=== PATIENT | female | born 1970 | race Caucasian/White ===

== ENCOUNTER 2020-01-21 14:01 | Outpatient (REF) | payer BC, SELFPAY ==
--- NOTE | 2020-01-21 14:09 | XR_ITS ---
EXAMINATION: 1. RADIOGRAPHS RIGHT KNEE 2. RADIOGRAPH LEFT KNEE CLINICAL INFORMATION: Bilateral knee pain. COMPARISON: None TECHNIQUE: 4 views of each knee were obtained. FINDINGS: Right knee: No fracture or dislocation. No suprapatellar joint effusion. Medial and lateral joint spaces are well-maintained. Small patellar enthesophyte. No focal soft tissue swelling of the anterior knee. Left knee: No fracture or. Tiny suprapatellar joint effusion. There is mild narrowing of the medial joint space height with marginal osteophytes which are also most prominent within the medial compartment. No focal soft tissue swelling of the anterior knee. XR/XR knee LT 4V IMPRESSION: 1. Mild degenerative changes of the left knee with only a tiny suprapatellar joint effusion. 2. Only minimal degenerative changes of the right kidney appreciated.
--- NOTE | 2020-01-21 14:09 | XR_ITS ---
EXAMINATION: 1. RADIOGRAPHS RIGHT KNEE 2. RADIOGRAPH LEFT KNEE CLINICAL INFORMATION: Bilateral knee pain. COMPARISON: None TECHNIQUE: 4 views of each knee were obtained. FINDINGS: Right knee: No fracture or dislocation. No suprapatellar joint effusion. Medial and lateral joint spaces are well-maintained. Small patellar enthesophyte. No focal soft tissue swelling of the anterior knee. Left knee: No fracture or. Tiny suprapatellar joint effusion. There is mild narrowing of the medial joint space height with marginal osteophytes which are also most prominent within the medial compartment. No focal soft tissue swelling of the anterior knee. XR/XR knee RT 4V IMPRESSION: 1. Mild degenerative changes of the left knee with only a tiny suprapatellar joint effusion. 2. Only minimal degenerative changes of the right kidney appreciated.
[2020-01-21 17:07] LABS: Rheumatoid Factor < 15.0 IU/mL (<15.0)
[2020-01-21 17:30] LABS: Erythrocyte Sedimentation Rate 10 MM/HR (0-20)
[2020-01-24 03:26] LABS: Lyme Abs Screen <0.90 index
[2020-01-24 18:31] LABS: Anti Nuclear Antibody Screen NEGATIVE (NEGATIVE)
== END 2020-01-21 14:02 | disposition home or self-care (01) ==
LOC: HO.HMGCX 14:01
PROVIDERS: PCP Nurse Practitioner Family; Visit Provider Nurse Practitioner Family
DX: M25.562 Pain in left knee (principal); M25.561 Pain in right knee
CPT/HCPCS: 36415; 73564; 85652; 86038; 86039; 86140; 86431; 86618

== ENCOUNTER 2020-02-13 11:36 | Outpatient (REF) | payer BC, SELFPAY ==
--- NOTE | 2020-02-13 11:45 | XR_ITS ---
EXAMINATION: XR KNEE AP STANDING CLINICAL INFORMATION: Knee pain. COMPARISON: Bilateral knee radiographs dated 01/21/2020. TECHNIQUE: AP bilateral standing view of the knees was obtained. FINDINGS: Mild right and moderate left medial femoral-tibial joint space narrowing is seen. There is no acute fracture. The soft tissues are unremarkable. XR/XR knee standing BI IMPRESSION: Mild right and moderate left medial femoral-tibial joint space narrowing is likely degenerative in nature suggesting osteoarthritis without significant interval change. No acute abnormality.
== END 2020-02-13 11:37 | disposition home or self-care (01) ==
LOC: HO.HOSX 11:36
PROVIDERS: Visit Provider Orthopaedic Surgery
DX: M25.561 Pain in right knee (principal); M25.562 Pain in left knee; M17.10 Unilateral primary osteoarthritis, unspecified knee; M17.0 Bilateral primary osteoarthritis of knee
CPT/HCPCS: 20610; 73565; J1100

== ENCOUNTER 2020-02-23 12:35 | Outpatient (REF) | payer BC, SELFPAY | END 2020-02-23 12:36 | disposition home or self-care (01) | LOC: HO.LAB 12:35 | PROVIDERS: Visit Provider Internal Medicine | DX: Z20.828 Contact with and (suspected) exposure to other viral communicable diseases (principal) | CPT/HCPCS: C9803; U0003 ==

== ENCOUNTER → 2020-02-26 08:45 | Outpatient (BNVA) | payer BC, SELFPAY | PROVIDERS: Visit Provider Physician Assistant | DX: Z76.89 Persons encountering health services in other specified circumstances (principal) ==

== ENCOUNTER → 2020-05-27 09:12 | Outpatient (BNVA) | payer BC, SELFPAY | PROVIDERS: PCP Nurse Practitioner Family; Visit Provider Orthopaedic Surgery | DX: M00.9 Pyogenic arthritis, unspecified (principal) | CPT/HCPCS: 20610; J1100 ==

== ENCOUNTER 2020-07-17 07:05 | Outpatient (REF) | payer BC, SELFPAY ==
--- NOTE | ~2020-07-17 | XR_ITS ---
EXAMINATION: XR FOOT, RIGHT CLINICAL INFORMATION: Bunion COMPARISON: None TECHNIQUE: AP, lateral, and oblique views of the right foot. FINDINGS: Mild hallux valgus. Small calcification/ossification medial to the 1st metatarsal head. No acute fractures seen. Tarsometatarsal alignment is maintained. Normal bone mineralization. XR/XR foot RT min 3V IMPRESSION: Hallux valgus. No acute osseous abnormality.
[2020-07-17 07:50] LABS: MANUAL DIFF FLAG NO
[2020-07-17 07:52] LABS: Basophils Percent Auto 0.7 % (0-2); Eosinophils Absolute Auto 0.2 X10*3/uL (0.0-0.4); Eosinophils Percent Auto 2.6 % (0-4); Hematocrit 40.3 % (37-47); Hemoglobin 13.4 g/dl (12.0-16.0); Imm Gran Abs Auto 0.03 X10*3/uL (0.00-0.03); Imm Gran Pct Auto 0.5 % (0.0-0.4); Lymphocytes Absolute Auto 2.4 X10*3/uL (1.2-4.9); Lymphocytes Percent Auto 39.6 % (20-40); Mean Corpuscular HGB Conc 33.3 g/dl (31.0-35.0); Mean Corpuscular Hemoglobin 30.5 pg (27.0-33.0); Mean Corpuscular Volume 91.6 fL (80-98); Mean Platelet Volume 10.4 fL (9.4-12.3); Monocytes Absolute Auto 0.6 X10*3/uL (0.1-1.2); Monocytes Percent Auto 9.4 % (2-11); Neutrophils Absolute Auto 2.9 X10*3/uL (2.0-8.3); Neutrophils Percent Auto 47.2 % (45-73); Platelet Count 294 X10*3/uL (160-400); Red Cell Distribution Width 13.3 % (11.0-16.0); White Blood Count 6.1 X10*3/uL (4.8-10.8)
[2020-07-17 08:18] LABS: Alanine Aminotransferase 20 U/L (0-31); Albumin Level 4.2 g/dL (3.5-5.0); Alkaline Phosphatase 115 U/L (39-117); Anion Gap 12 (12-20); Aspartate Amino Transferase 17 U/L (5-31); Bilirubin Total 0.6 mg/dL (0.0-1.0); Blood Urea Nitrogen 18 mg/dL (9-16); Calcium 9.7 mg/dL (8.4-10.2); Carbon Dioxide 31 mmol/L (22-29); Chloride 103 mmol/L (96-108); Cholesterol 219 mg/dL; Estimated Glomerular Filt Rate > 60; Glucose Fasting 95 mg/dL (60-99); HDL Cholesterol 78 mg/dL; LDL Cholesterol Calculated 128 mg/dl; Potassium 4.6 mmol/L (3.3-5.1); Sodium 141 mmol/L (135-145); Total Protein 6.7 g/dL (6.5-8.0); Triglycerides 66 mg/dL
[2020-07-17 08:41] LABS: TSH reflex Free T4 1.11 uIU/mL (0.32-4.0)
== END 2020-07-17 07:06 | disposition home or self-care (01) ==
LOC: HO.LAB 07:05
PROVIDERS: Visit Provider Nurse Practitioner Family
DX: Z00.00 Encounter for general adult medical examination without abnormal findings (principal); M21.612 Bunion of left foot
CPT/HCPCS: 36415; 73630; 80053; 80061; 84443; 85025

== ENCOUNTER → 2020-08-31 13:31 | Outpatient (REF) | payer BC, SELFPAY ==
--- NOTE | 2020-08-31 13:34 | CA_ITS ---
Transthoracic Echocardiogram Patient (Last, First, Middle): Debi Campbell, Gender: Female Date of : 1970 Age: 49 Procedure Date: 08/31/2020 Procedure Type: Transthoracic Echocardiogram Location: OP Height: 160.02 cm Weight: 81.65 kg BSA: 1.85 m2 Heart Rate: bpm BP: 122 / 70 mmHg Specialist Physician: [place] Referring MD: Dane Forte [facility] [employer] Sales Associate: Eric Boyle MD Symptoms: R01.1 - Cardiac murmur, unspecified Study Quality: Good ECG Rhythm: Sinus Conclusions: - Normal study Findings Left Ventricle Normal left ventricular size, thickness, and systolic function. The visually estimated ejection fraction is between 60-65%. There is no evidence of regional wall motion abnormalities. Diastolic function is normal for age. Right Ventricle Normal right ventricular cavity size and systolic function. Atria The left atrium is likely dilated. There is no evidence of interatrial shunt. The right atrium is normal in size. Aortic Valve Normal aortic valve structure and function. There is no aortic valve stenosis. There is no aortic valve regurgitation. Mitral Valve Normal mitral valve structure and function. There is trace mitral valve regurgitation. There is no mitral valve stenosis. Pulmonic Valve The pulmonic valve is likely normal. Tricuspid Valve Normal tricuspid valve structure. There is trace tricuspid valve regurgitation. The right ventricular systolic pressure is normal. The right ventricular systolic pressure is 21 mmHg. Normal right atrial pressure. There is no evidence of pulmonary hypertension. Great Vessels All visible segments of the aorta are normal in size. The pulmonary artery was not well visualized. Venous The inferior vena cava is normal in size. Pericardium/Pleural There is no evidence of pericardial effusion. Prior Study Comparison No prior study available for comparison. Measurements 2D Linear Measurements IVSd: 1.03 0.6-0.9/0.6-1.0 cm LVIDd: 4.31 3.9-5.3/4.2-5.9 cm LVIDd Index: 2.33 2.4-3.2/2.2-3.1 cm/m2 LVIDs: 2.35 2.0-3.6 cm LVPWd: 1.06 0.7-1.1 cm Ao Root: 2.70 2.1-3.5 cm LA Diam: 3.30 2.7-3.8/3.0-4.0 cm LAIDs Index: 1.78 1.5-2.3 cm/m2 LV Mass: 189.36 67-162/88-224 g LV Mass Index: 102.36 43-95/49-115 g/m2 LVOT Diam: 1.90 3.0+(-)1.3 cm Mitral Valve MV Pk E: 0.90 MV PK A: 0.77 MV Decel Time: 161.00 E/A: 1.20 E'Lateral: 10.20 E'Medial: 9.25 E/E' Med: 9.70 E/E' Lat: 8.80 PHT: 47.00 MVA PHT: 4.68 Decel Rapides: 5.60 Aortic Valve AoV Pk Song: 1.46 AoV Mn Song: 1.02 AoV VTI: 0.34 AoV Pk Grad: 9.00 Aov Mn Grad: 5.00 YOSELIN Cont.VTI: 1.95 LVOT LVOT Pk Song: 0.94 LVOT Mn Song: 0.57 LVOT VTI: 0.23 LVOT Pk Grad: 4.00 LVOT Mn Grad: 2.00 LVOT Diam: 1.90 LVOT Area: 2.84 Diastolic Function MV Pk E: 0.90 MV Pk A: 0.77 E/A: 1.20 E'Medial: 9.25 E/E' Med: 9.70 E' Laterial: 10.20 E/E' Lat: 8.80 Tricuspid Valve TR Pk Song: 2.15 TR Pk Grad: 18.00 RA Press: 3.00 RVSP: 21.00 Great Vessels Aorta Ao Root-2D: 2.70 2.0-3.7 cm Ao Asc: 2.80 2.1-3.4 cm Pulmonary Valve PV Pk Song: 0.87 Peak PV Grad: 3.00 Updated in Other Vendor System with Status of Final Eric Boyle MD electronically signed on 08/31/2020 5:08:33 PM with status of Final
== END ==
LOC: HO.CARD 13:31
PROVIDERS: PCP Nurse Practitioner Family; Visit Provider Nurse Practitioner Family
DX: R01.1 Cardiac murmur, unspecified (principal)
CPT/HCPCS: 93306

== ENCOUNTER 2020-10-05 06:41 | Outpatient (REF) | payer BC, SELFPAY ==
--- NOTE | ~2020-10-05 | XR_ITS ---
EXAMINATION: XR CERVICAL SPINE CLINICAL INFORMATION: Spinal stenosis COMPARISON: Previous x-ray January 2020 TECHNIQUE: 5 views of the cervical spine were obtained. FINDINGS: Bone alignment is normal. No fracture or dislocation is seen. There is degenerative spondylosis and degenerative disc disease from C3-C4 to C6-C7. There is right-sided neural foraminal narrowing from bony osteophyte at C3-C4, C4-C5 and C5-C6. There is left-sided neural foraminal narrowing from bony osteophyte from C3-C4 to C6-C7. Prevertebral soft tissues are normal. XR/XR cervical spine 3V IMPRESSION: Multilevel degenerative changes increased from 2006.
== END 2020-10-05 06:42 | disposition home or self-care (01) ==
LOC: HO.XRAY 06:41
PROVIDERS: PCP Nurse Practitioner Family; Visit Provider Nurse Practitioner Family
DX: M48.02 Spinal stenosis, cervical region (principal)
CPT/HCPCS: 72040

== ENCOUNTER → 2020-10-08 08:40 | Outpatient (BNVA) | payer BC, SELFPAY | PROVIDERS: PCP Nurse Practitioner Family; Visit Provider Orthopaedic Surgery ==

== ENCOUNTER → 2020-10-14 07:59 | Outpatient (BNVA) | payer BC, SELFPAY | PROVIDERS: PCP Nurse Practitioner Family; Visit Provider Orthopaedic Surgery | DX: M17.0 Bilateral primary osteoarthritis of knee (principal) | CPT/HCPCS: 20610 ==

== ENCOUNTER 2020-10-15 13:45 | Outpatient (REF) | payer BC, SELFPAY ==
--- NOTE | ~2020-10-15 | MR_ITS ---
EXAMINATION: MR CERVICAL SPINE WITHOUT CONTRAST CLINICAL INFORMATION: Spinal stenosis. Right arm pain, numbness, finger numbness. COMPARISON: Most recent cervical spine radiographs dated 10/05/2020. TECHNIQUE: MRI of the cervical spine was obtained using routine sequences without contrast. FINDINGS: VERTEBRAL BODIES AND PARASPINAL SOFT TISSUES: Mild reversal of the normal cervical lordosis, which may be positional or related to muscular spasm. No acute fracture or subluxation. No loss of vertebral body height. Loss of intervertebral disc height with disc desiccation at C3 through C7. Prominent degenerative endplate changes at C3 through C5. No abnormal signal within the visualized cord. The paraspinal soft tissues are unremarkable. CERVICOMEDULLARY JUNCTION AND VISUALIZED POSTERIOR FOSSA: Unremarkable. SPINAL LEVELS: C2-C3: No significant disc bulge. No central canal or neural foraminal stenosis. C3-C4: Mild broad-based disc bulge which partially effaces the ventral thecal sac. Bilateral facet arthropathy and uncinate spurring with minimal bilateral neural foraminal stenosis. C4-C5: Broad-based disc osteophyte complex which completely effaces the ventral thecal sac and minimally indents the adjacent cord. Bilateral facet arthropathy and uncinate spurring causing moderate right and mild left neural foraminal stenosis. C5-C6: Broad-based disc osteophyte complex, slightly asymmetric to the left which completely effaces the ventral thecal sac and minimally indents the adjacent cord. Bilateral uncinate spurring with mild left neural foraminal stenosis. C6-C7: Broad-based disc osteophyte complex, asymmetric to the right which completely effaces the ventral thecal sac and minimally indents the adjacent cord. Bilateral facet arthropathy and uncinate spurring causing [id number] bilateral neural foraminal stenosis. C7-T1: No significant disc bulge. No central canal or neural foraminal stenosis. MR/MR cervical spine wo con IMPRESSION: 1. Mild broad-based disc bulge at C3-C4 which partially effaces the ventral thecal sac with bilateral uncinate spurring and minimal bilateral neural foraminal stenosis. 2. Broad-based disc osteophyte complex at C4-C5 which completely effaces the ventral thecal sac and minimally indents the adjacent cord. Bilateral facet arthropathy and uncinate spurring with moderate right and mild left neural foraminal stenosis. 3. Broad-based disc osteophyte complex at C5-C6, asymmetric to the left which completely effaces the ventral thecal sac and minimally indents the adjacent cord. Bilateral uncinate spurring causing mild left neural foraminal stenosis. 4. Broad-based disc osteophyte complex at C6-C7 which is asymmetric to the right and completely effaces the ventral thecal sac as well as minimally indents the adjacent cord. Bilateral facet arthropathy and uncinate spurring causing [id number] bilateral neural foraminal stenosis. 5. Mild reversal of the normal cervical lordosis, which may be positional or related to muscular spasm.
== END 2020-10-15 13:46 | disposition home or self-care (01) ==
LOC: HO.MRI 13:45
PROVIDERS: PCP Nurse Practitioner Family; Visit Provider Nurse Practitioner Family
DX: M48.02 Spinal stenosis, cervical region (principal)
CPT/HCPCS: 72141

== ENCOUNTER → 2020-10-21 08:50 | Outpatient (BNVA) | payer BC, SELFPAY | PROVIDERS: Visit Provider Orthopaedic Surgery | DX: M17.0 Bilateral primary osteoarthritis of knee (principal) | CPT/HCPCS: 20610 ==

== ENCOUNTER → 2020-10-28 08:24 | Outpatient (BNVA) | payer BC, SELFPAY | PROVIDERS: Visit Provider Orthopaedic Surgery | DX: M17.0 Bilateral primary osteoarthritis of knee (principal) | CPT/HCPCS: 20610 ==

== ENCOUNTER 2020-11-25 07:16 | Day surgery (SDC) | payer BC, SELFPAY ==
[2020-11-08 16:36] LABS: MANUAL DIFF FLAG NO
[2020-11-08 16:37] LABS: Basophils Percent Auto 0.4 % (0-2); Eosinophils Percent Auto 1.7 % (0-4); Hematocrit 38.4 % (37-47); Imm Gran Pct Auto 0.3 % (0.0-0.4); Lymphocytes Percent Auto 29.1 % (20-40); Mean Corpuscular HGB Conc 33.9 g/dl (31.0-35.0); Mean Corpuscular Hemoglobin 30.7 pg (27.0-33.0); Mean Corpuscular Volume 90.8 fL (80-98); Mean Platelet Volume 10.2 fL (9.4-12.3); Monocytes Percent Auto 9.3 % (2-11); Neutrophils Absolute Auto 5.4 X10*3/uL (2.0-8.3); Neutrophils Percent Auto 59.2 % (45-73); Platelet Count 325 X10*3/uL (160-400); Red Blood Count 4.23 X10*6/uL (4.20-5.50); Red Cell Distribution Width 13.3 % (11.0-16.0); White Blood Count 9.2 X10*3/uL (4.8-10.8)
[2020-11-08 16:38] LABS: Eosinophils Absolute Auto 0.2 X10*3/uL (0.0-0.4); Imm Gran Abs Auto 0.03 X10*3/uL (0.00-0.03); Lymphocytes Absolute Auto 2.7 X10*3/uL (1.2-4.9); Monocytes Absolute Auto 0.9 X10*3/uL (0.1-1.2)
[2020-11-08 17:03] LABS: Alanine Aminotransferase 14 U/L (0-31); Albumin Level 4.1 g/dL (3.5-5.0); Alkaline Phosphatase 96 U/L (39-117); Anion Gap 13 (12-20); Aspartate Amino Transferase 16 U/L (5-31); Bilirubin Total 0.2 mg/dL (0.0-1.0); Blood Urea Nitrogen 17 mg/dL (9-16); Calcium 9.7 mg/dL (8.4-10.2); Carbon Dioxide 27 mmol/L (22-29); Chloride 103 mmol/L (96-108); Estimated Glomerular Filt Rate > 60; Glucose Random 90 mg/dL (60-115); Potassium 4.4 mmol/L (3.3-5.1); Sodium 139 mmol/L (135-145); Total Protein 6.5 g/dL (6.5-8.0)
[2020-11-19 13:32] VITALS: BMI 34.4
--- NOTE | 2020-11-23 12:19 | HP_ITS ---
DATE OF SERVICE: 11/25/2020 PREOPERATIVE DIAGNOSIS: Hallux abductovalgus deformity, right foot. PLANNED PROCEDURE: Right foot Dario bunionectomy. PAST MEDICAL HISTORY: Significant for anxiety, depression; spinal stenosis; diverticulosis; keratosis; history of opioid abuse; postlaminectomy syndrome; hip, back, and knee pain; gallbladder problems; headaches; migraines; chickenpox; joint implants and screws. CURRENT MEDICATIONS: Bupropion, sertraline, zopiclone, naloxone. PAST SURGICAL HISTORY: Back surgery in 2019, having laminectomy, cyst removal, hysterectomy, spinal fusion, cholecystectomy, rotator cuff surgery. FAMILY HISTORY: Significant for diabetes, malignancy, foot problems, depression, anxiety, and arthritis. SOCIAL HISTORY: She is a former smoker, however, the patient does relate occasional tobacco use. She relates that she has recently been hypnotized to try to quit completely. Does not relate any current cigarette or tobacco use. She relates no alcohol use. She is with no children. 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 ALLERGIES: BARIUM SULFATE, VARENICLINE. HOSPITALIZATIONS: Denies. REVIEW OF SYSTEMS: Within normal limits. HISTORY OF PRESENT ILLNESS: This is a 50-year-old female, presents with aching and tenderness in her right great toe joint that has been present for several months, has been gradually getting progressively worse. It has been aggravated by pressure, standing, and walking. She has tried rest, change in shoes without any significant relief in symptoms. PHYSICAL EXAMINATION: GENERAL: Reveals a pleasant, alert, well-nourished, well-developed, well-hydrated individual, who demonstrates proper attention to body habitus and hygiene. She is in no acute distress. She is oriented x3. NEUROLOGICAL EXAM: Reveals intact sensorium. Pain sensation is normal. Vibratory sensation is intact. Pinprick sensation is normal. Denies any burning, paresthesias, or tingling bilaterally. VASCULAR EXAM: DP and PT pulses are 3/4 bilaterally. Capillary refill time is immediate to all digits. Skin temperature is warm to cool, proximal to distal. Hair growth, texture, elasticity, and turgor are normal bilaterally. Pigmentation is normal. There is no edema. DERMATOLOGICAL EXAM: Reveals normal texture, elasticity, and turgor. There are no masses. The interspaces are clear. ORTHOPEDIC EXAM: Muscle strength 5/5 in all groups in a symmetrical fashion. There is a medially prominent first metatarsophalangeal joint with lateral tracking of the first MTPJ, which is reducible on the right foot with pain on palpation and inflammation present. DIAGNOSTIC DATA: X-rays are reviewed, show normal bone and soft tissue density consistent with patient's age and sex. There is increased first intermetatarsal angle and hallux abductus angle consistent with bunion deformity. The sesamoid position is about #4. There are no fractures noted. PLAN: The patient is scheduled for surgery. Several different types of bunion surgeries were discussed with the patient including, but not limited to modified [place] bunionectomy, Dario bunionectomy, shaft versus based wedge versus Lapidus bunionectomy. The risks of surgery versus not having surgery discussed in detail with the patient as well as the potential surgical complications including, but not limited to pain, swelling, bleeding, scarring, numbness, infection, delayed or nonhealing, floppy toe, unstable toe, shortened toe, recurrence, failure of the procedure, over-correction, need for further surgery, as well as possibility of loss of toe, foot, life, or limb. We discussed the use of IV and local anesthesia and the usual postoperative course. No guarantees were given. The patient verbally indicated a full understanding of the above conversation, answered any questions to their satisfaction. We decided on performing an Dario bunionectomy to the right foot based on the patient's complaints, medical and social history and physical exam. The patient would like to proceed with surgical treatment. She will obtain preoperative labs as well as medical clearance for surgery and anesthesia. She is made aware to stop any and all blood thinners including [id number] aspirin and fish oil at least 1 week prior to surgery and she is made aware that driving is not allowed during a portion of the postoperative period. The patient is also made aware not to utilize any smoking tobacco products for at least 3 months prior to surgery and at least 3 months postoperatively to facilitate bone and soft tissue healing. The patient deferred any narcotic pain medication due to a history of opiate abuse. Therefore, the patient will recommend staggering taking Extra Strength Tylenol, Motrin 800 mg as needed as well as gabapentin 300 mg once daily at night. The patient will also be partial weightbearing to the right foot in a surgical shoe with crutches after her surgery and she will follow up in my office for all postoperative followup care. Flaquita Eubanks DPM LP/PHILLY / [phone] MTDD
--- NOTE | 2020-11-24 12:42 | HO.ANESPROP2 ---
Documented by User: Lynn Thomas NP 11/24/20 12:48 HPI - Anesthesia Eval Consult details Narrative: 50yo F for Right Dario Bunionectomy Suboxone daily PCP cleared PMFSH Active Problems Active Problems: All Active Problems (Updated 11/19/20 @ 13:21 by Roselia Cao RN) Knee pain, bilateral (Acute) Bunion (Acute) Systolic murmur (Acute) Physical exam (Acute) Cervical stenosis of spinal canal (Acute) Arthritis of both knees (Acute) Pre-op evaluation (Acute) Diverticulosis of colon (Acute) Past Medical History Medical History (Updated 11/19/20 @ 13:21 by Roselia Cao RN) Anxiety and depression Cervical stenosis of spine COVID-19 vaccine series completed Diverticulosis of colon Opiate abuse, continuous Postlaminectomy syndrome Seborrheic keratoses Family History Family History Father HTN (hypertension) Diabetes mellitus High cholesterol Cirrhosis Mother Anxiety Depression Maternal Grandmother No problems noted. Surgical History Surgical History (Updated 11/19/20 @ 13:19 by Roselia Cao RN) H/O colonoscopy History of back surgery History of endometrial ablation History of hysterectomy History of lumbar spinal fusion History of reduction mammoplasty Hx of cholecystectomy Hx of rotator cuff surgery Social History Social History Household Members: Spouse Housing: House Patient Tobacco Use Status: Former Tobacco user Tobacco use type: Cigarette Advance Directives Information Provided: No Current occupational status: employed Current occupation: [employer] - Right Handed Meds Allergies Allergy/AdvReac Type Severity Reaction Status Date / Time varenicline [From Chantix] Allergy Severe suicidal Verified 11/19/20 13:21 thoughts barium sulfate AdvReac Severe Suicidal Verified 11/19/20 13:21 thoughts Home Medications Medication Instructions Recorded Confirmed Last Taken Type buprenorphine 8 mg-naloxone 2 mg 8 mg SUBLINGUAL DAILY 01/20/20 11/19/20 Unknown History sublingual film Exam Exam Date and Time: November 24, 2020 1242 Height,Weight and Vital Signs: Height 5 ft 3 in Weight 88.167 kg Pertinent Lab Results Pertinent Lab Results: Laboratory Tests 11/08/20 11/08/20 14:06 14:06 WBC 9.2 RBC 4.23 Hgb 13.0 Hct 38.4 MCV 90.8 MCH 30.7 MCHC 33.9 RDW 13.3 Plt Count 325 MPV 10.2 Immature Gran % (Auto) 0.3 Neut % (Auto) 59.2 Lymph % (Auto) 29.1 [place] % (Auto) 9.3 Eos % (Auto) 1.7 Baso % (Auto) 0.4 Lymph # (Auto) 2.7 [place] # (Auto) 0.9 Eos # (Auto) 0.2 Baso # (Auto) 0.0 Abs Immat Gran (auto) 0.03 Absolute Neuts (auto) 5.4 Absolute Nucleated RBC 0.000 Nucleated RBC % (auto) 0.0 Sodium 139 Potassium 4.4 Chloride 103 Carbon Dioxide 27 Anion Gap 13 BUN 17 H Creatinine 0.70 Estim Creat Clear Calc TNP Estimated GFR > 60 Random Glucose 90 Calcium 9.7 Total Bilirubin 0.2 AST 16 ALT 14 Alkaline Phosphatase 96 Total Protein 6.5 Albumin 4.1 Narrative Narrative: EKG 10/2020 NSR @ 66 ? LAE Cannot r/o Inferior Infarct Echo 08/2020 Conclusions: - Normal study ?? Assessment and Plan Assessment Anesthesia Assessment: Chart Reviewed Documented by User: Tory Pantoja MD 11/25/20 07:31 [facility] Past Medical History Medical History (Updated 11/19/20 @ 13:21 by Roselia Cao RN) Anxiety and depression Cervical stenosis of spine COVID-19 vaccine series completed Diverticulosis of colon Opiate abuse, continuous Postlaminectomy syndrome Seborrheic keratoses Functional capacity: independent ambulation Patient : No Family History Family History Father HTN (hypertension) Diabetes mellitus High cholesterol Cirrhosis Mother Anxiety Depression Maternal Grandmother No problems noted. Family history of problems with anesthesia: No Surgical History Surgical History (Updated 11/19/20 @ 13:19 by Roselia Cao RN) H/O colonoscopy History of back surgery History of endometrial ablation History of hysterectomy History of lumbar spinal fusion History of reduction mammoplasty Hx of cholecystectomy Hx of rotator cuff surgery History of Problems with Anesthesia: No Social History Social History Household Members: Spouse Housing: House Patient Tobacco Use Status: Former Tobacco user Tobacco use type: Cigarette Advance Directives Information Provided: No Current occupational status: employed Current occupation: [employer] - Right Handed Meds Allergies Allergy/AdvReac Type Severity Reaction Status Date / Time varenicline [From Chantix] Allergy Severe suicidal Verified 11/19/20 13:21 thoughts barium sulfate AdvReac Severe Suicidal Verified 11/19/20 13:21 thoughts Home Medications Medication Instructions Recorded Confirmed Last Taken Type buprenorphine 8 mg-naloxone 2 mg 8 mg SUBLINGUAL DAILY 01/20/20 11/19/20 Unknown History sublingual film Assessment and Plan Final Anesthetic Review Family History of Problems with Anesthesia: No History of Problems with Anesthesia: No
[2020-11-25 07:32] VITALS: BP 120/73; PULSE 74; RESP 16; TEMP 36.4; O2SAT 96
[2020-11-25] MEDS: Lactated Ringers 1,000 ML 100 ML IVCONT (07:58)
--- NOTE | 2020-11-25 08:55 | MHC.SHP ---
Pre-Procedural Eval Section A Date of Service: 11/25/20 The patient is an INPATIENT: No Changes since office visit: No Cold of Flu in the past 2 weeks, No New Medical Problems, No Changes in Medication and No Patient answered all questions The History & Physical has been completed within 30 days and I have reviewed it.: Yes Section B Chief Complaint: hallux valgus,right Allergies: Allergies Allergy/AdvReac Type Severity Reaction Status Date / Time varenicline [From Chantix] Allergy Severe suicidal Verified 11/19/20 13:21 thoughts barium sulfate AdvReac Severe Suicidal Verified 11/19/20 13:21 thoughts Plan I have reviewed the history and physical and performed a pertinent physical examination on my patient. No changes have occurred unless specified.
[2020-11-25 09:46] VITALS: BP 99/62; PULSE 81; RESP 16; TEMP 36.2; O2SAT 98
--- NOTE | 2020-11-25 09:48 | P.BOP_ITS ---
Brief Operative Note Date of Service: 11/25/20 Pre-op diagnosis: Hallux valgus right Post-op diagnosis: same Procedure: Right Dario bunionectomy Implants: [place] Asnis screws 17mm x 2 Surgeon: Flaquita Eubanks Anesthesia: MAC and local Was an Buildings And Grounds Director used for this Procedure?: Yes Buildings And Grounds Director: Hammad Avina Estimated blood loss (mL): 5 Tourniquet time (min): 19 Pathology: other Condition: stable Disposition: PACU
[2020-11-25 10:00] VITALS: BP 103/72; PULSE 80; RESP 18; TEMP 36.2; O2SAT 98
[2020-11-25] MEDS: Acetaminophen 325 MG TABLET 650 MG PO (10:00)
--- NOTE | 2020-11-25 11:27 | HO.POSTANES ---
Post Anesthesia Evaluation Post Anesthesia Evaluation Vital Signs: Vital Signs Temp Pulse Resp BP Pulse Ox 11/25/20 10:00 97.2 F 80 18 103/72 98 11/25/20 09:46 97.2 F 81 16 99/62 98 11/25/20 07:32 97.5 F 74 16 120/73 96 Anesthesia: Monitored Mental Status: Awake Pain Control: Satisfactory Nausea/Vomiting: None Hydration: Adequate Anesthesia-Related Issues: No Anes. Related Issues
--- NOTE | 2020-11-26 13:32 | OP_ITS ---
SURGEON: Flaquita Eubanks DPM PREOPERATIVE DIAGNOSIS: Hallux abductovalgus deformity, right foot. POSTOPERATIVE DIAGNOSIS: Hallux abductovalgus deformity, right foot. PROCEDURE PERFORMED: Right Dario bunionectomy. ESTIMATED BLOOD LOSS: Less than 5 mL. COMPLICATIONS: None. ANESTHESIA: Monitored anesthetic care with local consisting preoperatively of 1:1 mixture of 2% lidocaine plain and 0.5% Marcaine plain. ASSISTANTS: Hammad Avina DPM. SPECIMENS: HEMOSTASIS: Pneumatic ankle tourniquet set at 225 mmHg for 19 minutes. SPECIMEN: Bone, right foot. INDICATIONS FOR SURGERY: The patient had painful bunion deformity noted to the right foot that has failed conservative therapies. The above-mentioned surgery was discussed in detail with the patient including risks, benefits, and possible complications. No guarantees were given, and written and oral informed consent was obtained. DESCRIPTION OF PROCEDURE: The patient was brought into the operating room and placed on the operating table in the supine position. Following IV sedation, the patient was given a prophylactic antibiotic of 2 g of cefazolin. The right foot was then anesthetized with 12 mL of 0.5% Marcaine plain and 2% lidocaine plain and the right foot was scrubbed, prepped, and draped in a sterile manner. The right foot was exsanguinated and pneumatic ankle tourniquet was inflated to 225 mmHg. Attention was directed to the right foot at the level of the first metatarsophalangeal joint, where approximately 7 cm linear incision was made. The incision was deepened down through subcutaneous tissue. Great care being taken to retract vital, neuro, and vascular structures and all bleeders were cauterized as necessary. The attention was directed first to the medial aspect of the right first metatarsal head, where a medial eminence was noted. Using the sagittal saw, the medial eminence of the right foot first metatarsal head was resected and passed from my operative site. Via the same incision, attention was directed to the first interspace, where the deep transverse intermetatarsal ligament was transected, the fibular sesamoidal ligament and the head of the adductor tendon performing a lateral release allowing head of the first metatarsal drift into a more corrected position. Attention was then directed back to the first metatarsal head medially, where V-type osteotomy was made. A guidewire was placed to form the apex of the osteotomy and that was removed and then the sagittal saw was used to create plantar proximal and dorsal proximal V-type osteotomy. Upon completion of the osteotomy, the capital fragment was translocated laterally and impacted upon the first metatarsal shaft. Two guidewires were placed from the Franny Asnis screw set across the osteotomy site and then two 17 mm Maitland Asnis screws were placed via AO technique across the osteotomy site. All guidewires were removed and there was excellent compression and stabilization of the osteotomy. The remaining medial eminence was resected and passed from my operative site. The wound was irrigated with normal sterile saline. The capsular structures were reapproximated with 3-0 Vicryl in a continuous running fashion. The skin was reapproximated with 4-0 Monocryl in a continuous running fashion. A ZipLine was placed over the incision and a postoperative injection of 5 mL of 0.5% Marcaine plain and 1 mL of dexamethasone was administered. The foot was then dressed with Adaptic, Betadine-soaked gauze, 4x4s, fluffs, Kerlix, cast padding, and an Vinicius bandage. Pneumatic ankle tourniquet was deflated. Prompt capillary refill was noted to all 5 digits. The patient tolerated procedure and surgery well. The patient was transferred to the recovery room with vital signs stable and vascular status at preoperative levels. Following a period of postop recovery, the patient will be discharged home with written and oral postoperative instructions. The patient will follow up in my office for all postoperative followup care and for any questions or concerns. The patient will be partial weightbearing to the right foot in a surgical shoe with crutches. The patient to be weightbearing mostly to her heel and will follow up as scheduled. Flaquita Eubanks DPM LP/PHILLY / [id number] RAVINDRA
== END 2020-11-25 11:00 | disposition home or self-care (01) ==
PROVIDERS: PCP Nurse Practitioner Family; Referring Provider Nurse Practitioner Family; Visit Provider Podiatrist
PROC: (CPT 28292; principal; 2020-11-25 09:30)
DX: M20.11 Hallux valgus (acquired), right foot (principal); M21.611 Bunion of right foot; F11.20 Opioid dependence, uncomplicated; F32.9 Major depressive disorder, single episode, unspecified; M96.1 Postlaminectomy syndrome, not elsewhere classified; Z79.899 Other long term (current) drug therapy; Z87.891 Personal history of nicotine dependence
CPT/HCPCS: 28296; 36415; 80053; 85025; 88304; 88311; C1713; J0690; J1100; J2250; J2405; J3010

== ENCOUNTER 2021-07-27 06:03 | Outpatient (REF) | payer BC, SELFPAY ==
[2021-07-27 11:15] LABS: MANUAL DIFF FLAG NO
[2021-07-27 11:26] LABS: Appearance Urine CLEAR; Basophils Percent Auto 0.6 % (0-2); Color Urine YELLOW; Eosinophils Absolute Auto 0.2 X10*3/uL (0.0-0.4); Eosinophils Percent Auto 3.5 % (0-4); Glucose Urine UA NEG (NEG); Hemoglobin 12.9 g/dl (12.0-16.0); Imm Gran Abs Auto 0.02 X10*3/uL (0.00-0.03); Imm Gran Pct Auto 0.3 % (0.0-0.4); Leukocyte Esterase Urine NEG (NEG); Lymphocytes Absolute Auto 2.2 X10*3/uL (1.2-4.9); Lymphocytes Percent Auto 34.9 % (20-40); Mean Corpuscular HGB Conc 33.1 g/dl (31.0-35.0); Mean Corpuscular Hemoglobin 30.8 pg (27.0-33.0); Mean Corpuscular Volume 93.1 fL (80.0-98.0); Mean Platelet Volume 10.9 fL (9.4-12.3); Monocytes Absolute Auto 0.6 X10*3/uL (0.1-1.2); Monocytes Percent Auto 9.7 % (2-11); Neutrophils Absolute Auto 3.2 x10*3/uL (2.0-8.3); Nitrite Urine NEG (NEG); PH 5.5 (5.0-8.0); Platelet Count 300 X10*3/uL (160-400); Red Blood Count 4.19 X10*6/uL (4.20-5.50); Red Cell Distribution Width 13.2 % (11.0-16.0); Specific Gravity - Urine >= 1.030 (1.005-1.025); Urine Blood NEG (NEG); Urine Ketones NEG (NEG); Urine Protein NEG (NEG-TRACE); White Blood Count 6.3 X10*3/uL (4.8-10.8)
[2021-07-27 11:51] LABS: Alanine Aminotransferase 38 U/L (0-31); Albumin Level 4.1 g/dL (3.5-5.0); Alkaline Phosphatase 122 U/L (39-117); Anion Gap 11 (12-20); Aspartate Amino Transferase 26 U/L (5-31); Bilirubin Total 0.4 mg/dL (0.0-1.0); Blood Urea Nitrogen 15 mg/dL (9-16); Calcium 9.5 mg/dL (8.4-10.2); Carbon Dioxide 29 mmol/L (22-29); Chloride 105 mmol/L (96-108); Cholesterol 164 mg/dL; Estimated Glomerular Filt Rate > 60; Glucose Fasting 97 mg/dL (60-99); HDL Cholesterol 62 mg/dL; LDL Cholesterol Calculated 90 mg/dl; Potassium 4.1 mmol/L (3.3-5.1); Sodium 141 mmol/L (135-145); Total Protein 6.8 g/dL (6.5-8.0); Triglycerides 60 mg/dL
[2021-07-27 11:53] LABS: TSH reflex Free T4 1.35 uIU/mL (0.32-4.0)
== END 2021-07-27 06:04 | disposition home or self-care (01) ==
LOC: HO.HMGCLDS 06:03
PROVIDERS: Visit Provider Nurse Practitioner Family
DX: Z00.00 Encounter for general adult medical examination without abnormal findings (principal)
CPT/HCPCS: 36415; 80053; 80061; 81003; 84443; 85025

== ENCOUNTER 2021-08-08 12:11 | Outpatient (REF) | payer BC, SELFPAY ==
--- NOTE | ~2021-08-08 | MM_ITS ---
EXAMINATION: MM SCREENING DIGITAL BREAST TOMOSYNTHESIS, BILATERAL CLINICAL INFORMATION: Screening. Asymptomatic. The lifetime risk of breast cancer based on the Tyrer-Cuzick Model is 10%. COMPARISON: Mammography: 10/16/2018, 11/12/2015 TECHNIQUE: Digital breast tomosynthesis is performed in both the craniocaudal and mediolateral oblique views along with computer-aided detection (CAD). Synthesized 2D images are generated from the tomosynthesis. Additional left CC view is provided. FINDINGS: There are scattered areas of fibroglandular density (ACR BI-RADS breast composition Category b). There are no significant masses, abnormal calcifications, or other abnormalities. There are some scattered punctate round, rim, predominantly dermal calcifications posterior medial breasts. The axilla are unremarkable. No significant changes from prior studies. MM/MM tomosynthesis screening BI IMPRESSION: No mammographic evidence of malignancy. ASSESSMENT: BI-RADS 2: Benign RECOMMENDATION: Routine annual mammography screening. This patient's information was entered into a reminder system with a target due date for their next mammogram.
== END 2021-08-08 12:12 | disposition home or self-care (01) ==
LOC: HO.MAMMO 12:11
PROVIDERS: PCP Nurse Practitioner Family; Visit Provider Nurse Practitioner Family
DX: Z12.31 Encounter for screening mammogram for malignant neoplasm of breast (principal)
CPT/HCPCS: 77063; 77067

== ENCOUNTER 2021-08-31 11:01 | Outpatient (REF) | payer BC, SELFPAY ==
--- NOTE | ~2021-08-31 | MM_ITS ---
EXAMINATION: BONE DENSITOMETRY CLINICAL INDICATION: Nicotine dependence, unspecified, uncomplicated. COMPARISON: This is the patient's baseline examination. TECHNIQUE: Using a Inveni DXA System (software version: 13.1) manufactured by [employer], dual-energy x-ray absorptiometry was performed of the left hip and left forearm radius 33%. The images are of good technical quality. Summary results are attached. FINDINGS: LEFT FEMUR, NECK: BMD 0.932 g/cm2, Z-score -0.4, T-score -0.8, normal. LEFT FEMUR, TOTAL: BMD 1.050 g/cm2, Z-score 0.3, T-score 0.3, normal. LEFT FOREARM RADIUS 33%: BMD 0.891 g/cm2, Z-score 0.4, T-score 0.2, normal. IDENTIFIED RISK FACTORS: Low calcium intake. Menopause, hysterectomy. HISTORY OF FRACTURE: None listed. MEDICATIONS: None listed. MM/XR DEXA axial skeleton IMPRESSION: 1. DIAGNOSIS: Normal bone density based on the lowest T-score value of -0.8 in the femoral neck applying World Health Organization criteria. 2. 10-YEAR FRACTURE RISK PREDICTION, FRAX: Major osteoporotic fracture (clinical spine, forearm, hip or shoulder) 4.5%. Hip fracture 0.2%. 3. Treatment Recommendations: NOF guidelines recommend consideration for treatment in postmenopausal women and men age 50 and older presenting with the following: -A hip or vertebral (clinical or morphometric) fracture. -T-score less than or equal to -2.5 at the femoral neck or spine after appropriate evaluation to exclude secondary causes. -Low bone mass at the hip or spine and a 10-year fracture probability by FRAX of greater than or equal to 3% for hip fracture or greater than or equal to 20% for major osteoporotic fracture based on the [place] adapted WHO algorithm. 4. Other Recommendations: All treatment decisions require clinical judgment and consideration of individual patient factors, including patient preferences, comorbidities, previous drug use, risk factors not captured in the FRAX model (e.g. frailty, falls, vitamin D deficiency, increased bone turnover, interval significant decline in bone density) and possible under or overestimation of fracture risk by FRAX. FUTURE SCAN RECOMMENDATION: People with diagnosed cases of osteoporosis or at high risk for fracture should have regular bone mineral density tests. For patients eligible for Medicare, routine testing is allowed once every 2 years. The testing frequency can be increased to one year for patients who have rapidly progressing disease, those who are receiving or discontinuing medical therapy to restore bone mass, or have additional risk factors.
== END 2021-08-31 11:02 | disposition home or self-care (01) ==
LOC: HO.MAMMO 11:01
PROVIDERS: PCP Nurse Practitioner Family; Visit Provider Nurse Practitioner Family
DX: Z13.820 Encounter for screening for osteoporosis (principal); Z78.0 Asymptomatic menopausal state; F17.200 Nicotine dependence, unspecified, uncomplicated
CPT/HCPCS: 77080

== ENCOUNTER 2022-11-14 09:43 | Outpatient (AMB) | payer BC, SELFPAY ==
--- NOTE | 2022-11-14 09:45 | A.OFFVIS_ITS ---
Intake Vital Signs 11/14/22 09:46 Height 5 ft 3 in Weight 189 lb BMI 33.5 BP 110/80 Intake Visit Reasons: FIELD HAND annual exam Intake Note: The patient agreed to use of a medical office receptionist during this encounter. Scribed for RANDAL Valentin by Salena Vale, medical office receptionist, on 11/14/2022 at 10:00 am EST. Information Interpreted: non-clinical & clinical Recreation Program Coordinator: Recreation Program Coordinator Present (Franca) Allergies varenicline [From Chantix] Allergy (Severe, Verified 11/14/22 09:48) suicidal thoughts barium sulfate Adverse Reaction (Severe, Verified 11/14/22 09:48) Suicidal thoughts Is last menstrual period known: No Post menopausal: Yes Patient : No HPI HPI Comments History of Present Illness Details She is a postmenopausal woman presenting for new patient annual exam. She is grieving the recent loss of her dog. Patient admits she tries to eat a healthy diet including Calcium and Vitamin D. She stays active with exercise. Currently not sexually active due to painful intimacy, vaginal dryness and low libido after hysterectomy. Denies vaginal itching and irritation. Denies family hx of breast, colon and ovarian cancer. Last pap smear 04/30/19. Last mammogram 08/08/21. UTD on colonoscopy. [facility] Medical History (Updated 11/14/22 @ 10:08 by Salena Vale) Anxiety and depression Cervical stenosis of spine COVID-19 vaccine series completed Diverticulosis of colon Low libido Menopausal vaginal dryness Opiate abuse, continuous Postlaminectomy syndrome Seborrheic keratoses Surgical History H/O colonoscopy History of back surgery History of bunionectomy of right great toe History of endometrial ablation History of hysterectomy History of left knee replacement History of lumbar spinal fusion History of reduction mammoplasty Hx of cholecystectomy Hx of rotator cuff surgery Family History Father HTN (hypertension) Diabetes mellitus High cholesterol Cirrhosis Mother Anxiety Depression Maternal Grandmother No problems noted. Social History Household Members: Spouse Housing: House Patient Tobacco Use Status: Former Tobacco user Tobacco use type: Cigarette e-Cigarette/Vaping Use: Never Used Current occupational status: employed Current occupation: [employer]. - Right Handed Cognitive needs: No Hearing needs: No Vision needs: Yes Female Reproductive History Menstrual Menopause type: surgical Total pregnancies: 0 Date of last pap smear: 04/30/19 (unsat neg hpv) Date of Mammogram: 08/08/21 Physical Exam Vital Signs: Last Vital Signs BP 110/80 11/14/22 09:46 BMI result Body Mass Index 33.5 Const General: cooperative, healthy appearing, no acute distress, well developed and alert Orientation/consciousness: patient oriented x3 HEENT Head: Yes normal to inspection Eyes General: appearance normal, both eyes and all related structures Neck Neck: Yes normal visual inspection Thyroid: Thyroid normal Chest Other: breast reduction scarring Chest palpation & inspection: normal inspection of the chest Breast/axilla inspection: normal inspection of the breasts (no puckering, dimp ling, peau de orange, retraction, discharge, masses) Breast/axilla palpation: normal palpation of the breasts Resp Effort & Inspection: normal respiratory effort GI Inspection: Yes normal to inspection Palpation (GI): Soft to palpation (to palpation) Rectal Exam - Female: deferred General: Yes bladder normal to inspection External Female Exam: normal external appearance and normal appearance of the urethra Speculum Exam - Vagina: normal appearance of the vagina, normal palpation and vagina atrophic Speculum Exam - Cervix: Cervix absent and Other cervical findings present (vag cuff;no lesioins, no nodules) Bimanual exam- vagina & uterus: normal palpation and uterus absent Bimanual Exam- Adnexa, other: normal adnexae and no masses Skin General skin exam: no rashes or lesions noted Neuro General: patient oriented x3 Cognition (Neuro): normal cognition Extrem General: Yes normal to inspection Psych Attitude: cooperative Thought process: Normal thought process present Assessment & Plan Assessment & Plan (1) Encounter for well woman exam: Code(s): Z01.419 - Encounter for gynecological examination (general) (routine) without abnormal findings Plan: Discussed: Current recommendations for pap smears per ASCCP guidelines. Breast awareness and periodic self breast exams. Encouraged yearly mammograms. Maintaining a healthy lifestyle including a well balanced diet including Calcium and Vitamin D and routine exercise. Contact office with any PMB. All of her questions and concerns were addressed to the best of my ability RTO in 1 year for AG. (2) Menopausal vaginal dryness: Code(s): N95.1 - Menopausal and female climacteric states Plan: Recommend Replens or lubricants for vaginal dryness. (3) Low libido: Code(s): R68.82 - Decreased libido Coding Level of Care Code New Pt Prev Care 40-64y(67167) Diagnoses Encounter for well woman exam Z01.419 Menopausal vaginal dryness N95.1 Low libido R68.82
[2022-11-14 09:46] VITALS: BP 110/80; BMI 33.5
== END 2022-11-14 10:21 | disposition home or self-care (01) ==
LOC: HO.HWS 09:43
PROVIDERS: PCP Nurse Practitioner Family; Visit Provider Advanced Practice Midwife
DX: Z01.419 Encounter for gynecological examination (general) (routine) without abnormal findings (principal); N95.1 Menopausal and female climacteric states; R68.82 Decreased libido
CPT/HCPCS: 99386

== ENCOUNTER → 2022-11-14 09:43 | Outpatient (BNVA) | payer BC, SELFPAY | PROVIDERS: PCP Nurse Practitioner Family; Visit Provider Advanced Practice Midwife ==

== ENCOUNTER 2023-01-24 07:27 | Outpatient (AMB) | payer BC, SELFPAY ==
--- NOTE | 2023-01-24 07:40 | A.OFFPC_ITS ---
Vital Signs 01/24/23 07:42 Height 5 ft 3 in Weight 190 lb BMI 33.7 BP 110/64 Blood Pressure Location Rt brachial Position Sitting Pulse 77 Pulse Source Pulse Oximeter Pulse Oximetry (%) 98 Oxygen Delivery Method Room Air Intake Visit Reasons: phy Allergies varenicline [From Chantix] Allergy (Severe, Verified 01/24/23 07:49) suicidal thoughts barium sulfate Adverse Reaction (Severe, Verified 01/24/23 07:49) Suicidal thoughts Medication List - Last Reconciled 01/24/23 by ROD Carrillo buprenorphine-naloxone 8-2 mg 8 mg sublingual DAILY buspirone 7.5 mg PO BID 30 days eszopiclone 3 mg PO BEDTIME 30 days Tobacco use date assessed: 01/24/23 Dental Screening Dental Screen Date: 01/24/23 Did you have a dental visit in the last 12 months?: No Did you have a dental problem in the last 6 months where you did not have access to dental care?: No Was dental information given to patient?: Patient has dentist HPI phy HPI Details Here for a PE. Mammo reordered. 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 Ongoing fatigue, will check labs. [facility], [facility] Medical History Low libido Menopausal vaginal dryness COVID-19 vaccine series completed Diverticulosis of colon Opiate abuse, continuous Postlaminectomy syndrome Seborrheic keratoses Cervical stenosis of spine Anxiety and depression Surgical History History of left knee replacement History of bunionectomy of right great toe H/O colonoscopy Hx of rotator cuff surgery History of endometrial ablation History of lumbar spinal fusion History of back surgery Hx of cholecystectomy History of hysterectomy History of reduction mammoplasty Family History Father HTN (hypertension) Diabetes mellitus High cholesterol Cirrhosis Mother Anxiety Depression Maternal Grandmother No problems noted. Social History Household Members: Spouse Housing: House Patient Tobacco Use Status: Current everyday Tobacco user Tobacco use type: Cigarette e-Cigarette/Vaping Use: Never Used Current occupational status: employed Current occupation: [employer]. - Right Handed Cognitive needs: No Hearing needs: No Vision needs: Yes Questionnaire Thrive Questionnaire Date Thrive assessed: 07/26/21 AUDIT C Alcohol Use Questionnaire (AUDIT-C) 1. How often do you have a drink containing alcohol?: Never 3. How often do you have six or more drinks on one occasion?: Never Total Score: 0 Score Reviewed/Action Taken: No BRANDI-7 AMB Questionnaire BRANDI-7 Date BRANDI - 7 assessed: 07/26/21 Source: Developed by Drs. Josue Taveras, Ayla Mcneill, Malcolm Richmond and colleagues, with an educational cornell from [employer]. Review of Systems Const Denies chills and Denies fever(s) Eyes Denies blurry vision ENT Denies vertigo, Denies dizziness and Denies sore throat Card Denies chest pain at rest, Denies chest pain with activity, Denies diaphoresis, Denies dyspnea and Denies dyspnea on exertion Resp Denies cough, Denies dyspnea, Denies dyspnea on exertion and Denies wheezing GI Denies abdominal pain, Denies melena, Denies hematochezia, Denies constipation, Denies diarrhea and Denies loose stools Denies hematuria Musc Denies numbness and Denies tingling Skin/Breast Denies lesions Neuro Denies vertigo, Denies dizziness, Denies numbness and Denies tingling Psych Denies anxiety, Denies depression, Denies homicidal ideation, Denies suicidal ideation and Denies other (substance abuse) Aller/Immun Denies wheezing Physical exam (Primary Care) Vital Signs: Last Vital Signs Pulse 77 01/24/23 07:42 BP 110/64 01/24/23 07:42 Pulse Ox 98 01/24/23 07:42 Oxygen Delivery Method Room Air 01/24/23 07:42 BMI result Body Mass Index 33.7 Tobacco/Smoking Status: Tobacco use Status Tobacco use date assessed 01/24/23 01/24/23 07:45 Patient Tobacco Use Status Current everyday Tobacco 01/24/23 07:45 Tobacco use type Cigarette 01/24/23 07:45 e-Cigarette/Vaping Use Never Used 01/24/23 07:45 Thrive Assessment: Date of Thrive Assessment Date Thrive assessed 07/26/21 01/24/23 07:45 Const General: cooperative Nutritional Appearance: well nourished Orientation/consciousness: patient oriented x3 HENMT Head: Yes normal to inspection, Yes normocephalic and Yes atraumatic Ears: TM normal on the right and TM normal on the left Eyes General: appearance normal, both eyes and all related structures Alignment and Position: alignment normal and position normal Neck Neck: Yes normal visual inspection and Yes no lymphadenopathy Resp Effort & Inspection: normal respiratory effort Auscultation: clear to auscultation bilaterally Cardio Rate: regular rate Rhythm: regular rhythm Heart sounds: S1 normal heart sound present, S2 normal heart sound present and no murmurs GI Palpation (GI): Soft to palpation and nontender Auscultation: normal bowel sounds Skin Rashes: no rashes Neuro General: patient oriented x3, moves all extremities, no focal motor deficits and deep tendon reflexes 2+ bilaterally Romberg Test: Negative Extrem Right lower extremity: no edema Left lower extremity: no edema Psych Affect: normal affect Attitude: cooperative Thought process: Normal thought process present Assessment and Plan Assessment & Plan (1) Physical exam: Code(s): Z00.00 - Encounter for general adult medical examination without abnormal findings (2) Postmenopausal: Code(s): Z78.0 - Asymptomatic menopausal state (3) Fatigue: Code(s): R53.83 - Other fatigue Orders: Orders Complete Blood Count Auto Diff Today Z00.00 - Encounter for general adult medical examination without abnormal findings Comprehensive [place]. Panel Fast Today Z00.00 - Encounter for general adult medical examination without abnormal findings Vitamin D 25-OH Total Today Z78.0 - Asymptomatic menopausal state MM screening mammo BI Today Z12.31 - Encounter for screening mammogram for mal ignant neoplasm of breast Ferritin Today R53.83 - Other fatigue IRON PROFILE Today R53.83 - Other fatigue ANAYELI Reflex Titer and Pattern Today R53.83 - Other fatigue TSH reflex Free T4 Today Z00.00 - Encounter for general adult medical examination without abnormal findings UA CC w/rflx Micro + Cult Today Z00.00 - Encounter for general adult medical examination without abnormal findings Lipid Panel Today Z00.00 - Encounter for general adult medical examination without abnormal findings Vitamin B12 and Folate Today R53.83 - Other fatigue Sjogren's Antibodies Today R53.83 - Other fatigue Referrals Sleep Medicine Referral R53.83 - Other fatigue Coding Level of Care Code Est Pt Prev Care 40-64y(15773) Diagnoses Physical exam Z00.00 Postmenopausal Z78.0 Fatigue R53.83
[2023-01-24 07:42] VITALS: BP 110/64; PULSE 77; O2SAT 98; BMI 33.7
== END 2023-01-24 09:49 | disposition home or self-care (01) ==
PROVIDERS: Visit Provider Nurse Practitioner Family
DX: Z00.00 Encounter for general adult medical examination without abnormal findings (principal); Z78.0 Asymptomatic menopausal state; R53.83 Other fatigue
CPT/HCPCS: 99396

== ENCOUNTER 2023-11-21 08:54 | Outpatient (AMB) | payer BC, SELFPAY ==
--- NOTE | 2023-11-21 08:56 | A.OFFVIS_ITS ---
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 She is doing well with no concerns. Admits to not eating a healthy diet with calcium and vitamin D and stays active with exercise. Currently not sexually active w/ due to vaginal discomfort, used Replens in the past but not for the recommend did length of time. Denies any vaginal irritation. Last mammogram; 2021. Hysterectomy due to fibroids. Colonoscopy is UTD. Denies any family history of breast, ovarian or colon cancer. [facility] Medical History (Updated 11/21/23 @ 09:18 by Tiara Portillo CNM) Low libido Menopausal vaginal dryness COVID-19 vaccine series completed Diverticulosis of colon Opiate abuse, continuous Postlaminectomy syndrome Seborrheic keratoses Cervical stenosis of spine Anxiety and depression Surgical History (Updated 11/21/23 @ 09:01 by JU Marley) History of left knee replacement History of bunionectomy of right great toe H/O colonoscopy Hx of rotator cuff surgery History of endometrial ablation History of lumbar spinal fusion History of back surgery Hx of cholecystectomy History of hysterectomy History of reduction mammoplasty Family History Father HTN (hypertension) Diabetes mellitus High cholesterol Cirrhosis Mother Anxiety Depression Maternal Grandmother No problems noted. Social History (Updated 11/21/23 @ 09:00 by JU Marley) Household Members: Spouse Housing: House Alcohol intake: current Alcohol intake frequency: holidays/special occasions only Patient Tobacco Use Status: Current everyday Tobacco user Tobacco use type: Cigarette Cigarettes Per Day: 6 e-Cigarette/Vaping Use: Never Used Current occupational status: employed Current occupation: [employer]. - Right Handed Cognitive needs: No Hearing needs: No Vision needs: Yes Female Reproductive History Menstrual Menopause type: surgical Total pregnancies: 0 Date of Mammogram: 08/08/21 (Birad 2) Date of last Bone Density Screenin08/31/21 Review of Systems Const All systems reviewed & are unremarkable except as noted in HPI and below Reports as per HPI Eyes Reports no additional complaints ENT Reports no additional complaints Card Reports no additional complaints Resp Reports no additional complaints GI Reports as per HPI and Reports no additional complaints Reports as per HPI Musc Reports no additional complaints Skin/Breast Reports as per HPI Neuro Reports no additional complaints Psych Reports no additional complaints Endo Reports no additional complaints Wilfrid/Lymph Reports no additional complaints Aller/Immun Reports no additional complaints Physical Exam Vital Signs: Last Vital Signs BP 112/70 11/21/23 08:57 BMI result Body Mass Index 34.2 Const General: cooperative, healthy appearing, no acute distress, well developed and alert Orientation/consciousness: patient oriented x3 HEENT Head: Yes normal to inspection Eyes General: appearance normal, both eyes and all related structures Neck Neck: Yes normal visual inspection Thyroid: Thyroid normal Chest Other: Bilateral reduction scarring Chest palpation & inspection: normal inspection of the chest and other (no puckering, dimpling, peau de orange, retraction, discharge, masses) Breast/axilla inspection: normal inspection of the breasts Breast/axilla palpation: normal palpation of the breasts Resp Effort & Inspection: normal respiratory effort GI Inspection: Yes normal to inspection Palpation (GI): Soft to palpation Rectal Exam - Female: deferred General: Yes bladder normal to palpation External Female Exam: normal external appearance and normal appearance of the urethra Speculum Exam - Vagina: normal appearance of the vagina, normal palpation, normal vaginal discharge and vagina atrophic (Mild) Speculum Exam - Cervix: Cervix absent (Vaginal cuff no lesions or nodules) Bimanual exam- vagina & uterus: normal bimanual exam, normal palpation, bladder normal to palpation and uterus absent Bimanual Exam- Adnexa, other: no masses Skin General skin exam: no rashes or lesions noted Rashes: no rashes Neuro General: patient oriented x3 Cognition (Neuro): normal cognition Extrem General: Yes normal to inspection Psych Attitude: cooperative Thought process: Normal thought process present Assessment & Plan Assessment & Plan (1) Encounter for well woman exam with routine gynecological exam: Code(s): Z01.419 - Encounter for gynecological examination (general) (routine) without abnormal findings Category: Medical Plan Discussed: Current recommendations for pap smears per ASCCP guidelines. Breast awareness, periodic self breast exams and yearly mammogram. Strongly recommended to schedule mammogram for early detection screenings. Order placed. Maintain a healthy lifestyle, well balanced diet including Calcium 1,200 mg and Vitamin D 600 IU daily, and routine exercise. Replens moisturizer and lubricants. Patient verbalizes understanding and agrees to the plan of care. She was given opportunity to ask questions and all questions were answered to the best of my ability. RTO in 1 year for annual vice president & general manager [employer] [place] exam. This note is constructed using voice recognition software. While every effort has been made to ensure accuracy, human resources operations director errors may have been included. Orders: Orders MM tomosynthesis screening BI Today Z12.31 - Encounter for screening mammogram for malignant neoplasm of breast Coding Level of Care Code Est Pt Prev Care 40-64y(52662) Diagnoses Encounter for well woman exam with routine gynecological exam Z01.419
[2023-11-21 08:57] VITALS: BP 112/70; BMI 34.2
== END 2023-11-21 09:47 | disposition home or self-care (01) ==
PROVIDERS: PCP Nurse Practitioner Family; Visit Provider Advanced Practice Midwife
DX: Z01.419 Encounter for gynecological examination (general) (routine) without abnormal findings (principal)
CPT/HCPCS: 99396

== ENCOUNTER → 2023-11-21 08:54 | Outpatient (BNVA) | payer BC, SELFPAY | PROVIDERS: PCP Nurse Practitioner Family; Visit Provider Advanced Practice Midwife ==

== ENCOUNTER 2023-12-21 08:37 | Outpatient (REF) | payer BC, SELFPAY ==
--- NOTE | ~2023-12-21 | MM_ITS ---
EXAMINATION: MM SCREENING DIGITAL BREAST TOMOSYNTHESIS, BILATERAL CLINICAL INFORMATION: Screening. Asymptomatic. COMPARISON: Mammography: Comparison is made with available priors TECHNIQUE: Digital breast mammography with tomosynthesis is performed in both the craniocaudal and mediolateral oblique views along with computer-aided detection (CAD). FINDINGS: There are scattered areas of fibroglandular density (ACR BI-RADS breast composition Category b). There are no significant masses, abnormal calcifications, or other abnormalities. MM/MM tomosynthesis screening BI IMPRESSION: No mammographic evidence of malignancy. ASSESSMENT: BI-RADS BI-RADS 1 - Negative RECOMMENDATION: Routine annual mammography screening. 1 year F/U This examination should not preclude the clinical evaluation of a suspicious palpable abnormality. This patient's information was entered into a reminder system with a target due date for their next mammogram. Electronically signed by: Ana Mcnally DO 01/01/2024 06:15 PM EDT
== END 2023-12-21 08:38 | disposition home or self-care (01) ==
LOC: HO.MAMMO 08:37
PROVIDERS: PCP Nurse Practitioner Family; Visit Provider Advanced Practice Midwife
DX: Z12.31 Encounter for screening mammogram for malignant neoplasm of breast (principal)
CPT/HCPCS: 77063; 77067

== ENCOUNTER → 2023-12-21 08:45 | Outpatient (BNV) | payer BC, SELFPAY | PROVIDERS: PCP Nurse Practitioner Family; Visit Provider Internal Medicine | DX: Z12.31 Encounter for screening mammogram for malignant neoplasm of breast (principal) | CPT/HCPCS: 77063; 77067 ==

== ENCOUNTER 2024-02-13 07:24 | Outpatient (AMB) | payer BC, SELFPAY ==
[2024-02-13 07:27] VITALS: BP 108/74; PULSE 72; O2SAT 98; BMI 34.7
--- NOTE | 2024-02-13 07:27 | MHC.PC.OV ---
Vital Signs 02/13/24 07:27 Height 5 ft 3 in Weight 196 lb BMI 34.7 BP 108/74 Blood Pressure Location Lt brachial Position Sitting Pulse 72 Pulse Source Pulse Oximeter Pulse Oximetry (%) 98 Oxygen Delivery Method Room Air Intake Visit Reasons: phy Intake Note: Pt is here today for her PE Allergies varenicline [From Chantix] Allergy (Severe, Verified 02/13/24 07:55) suicidal thoughts barium sulfate Adverse Reaction (Severe, Verified 02/13/24 07:55) Suicidal thoughts Medication List - Last Reconciled 02/13/24 by Dane Forte [facility] buprenorphine-naloxone 8-2 mg 8 mg sublingual DAILY eszopiclone 3 mg PO BEDTIME PRN semaglutide (weight loss) (Wegovy) 0.25 mg (0.5 mL) subcut QWEEK Tobacco use date assessed: 02/13/24 Dental Screening Dental Screen Date: 02/13/24 Did you have a dental visit in the last 12 months?: Yes Did you have a dental problem in the last 6 months where you did not have access to dental care?: Yes Was dental information given to patient?: Patient has dentist HPI HPI Comments History of Present Illness Details Pt is here for a PE. colonoscopy is up to date. 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 Obesity: BMI: 34.7, reports trying diet and exercise with little effect. Left hip pain, ongoing, denies any popping or clicking, tenderness to left hip (mostly inner/groin region). Smoker: refuses LDCT right now [facility] Medical History (Updated 02/13/24 @ 09:18 by YINKA Carrillo-[place]) Low libido Menopausal vaginal dryness COVID-19 vaccine series completed Diverticulosis of colon Opiate abuse, continuous Postlaminectomy syndrome Seborrheic keratoses Cervical stenosis of spine Anxiety and depression Surgical History (Updated 11/21/23 @ 09:01 by JU Marley) History of left knee replacement History of bunionectomy of right great toe H/O colonoscopy Hx of rotator cuff surgery History of endometrial ablation History of lumbar spinal fusion History of back surgery Hx of cholecystectomy History of hysterectomy History of reduction mammoplasty Family History Father HTN (hypertension) Diabetes mellitus High cholesterol Cirrhosis Mother Anxiety Depression Maternal Grandmother No problems noted. Social History (Updated 11/21/23 @ 09:00 by Mary Ann Lee [facility]) Household Members: Spouse Housing: House Alcohol intake: current Alcohol intake frequency: holidays/special occasions only Patient Tobacco Use Status: Current everyday Tobacco user Tobacco use type: Cigarette Cigarettes Per Day: 6 e-Cigarette/Vaping Use: Never Used Current occupational status: employed Current occupation: [employer]. - Right Handed Cognitive needs: No Hearing needs: No Vision needs: Yes Questionnaire PHQ-9 Over the last 2 weeks, how often have you been bothered by any of the following problems? 1. Little interest or pleasure in doing things: more than half the days 2. Feeling down, depressed, or hopeless: several days 3. Trouble falling or staying asleep, or sleeping too much: nearly every day 4. Feeling tired or having little energy: nearly every day 5. Poor appetite or overeating: several days 6. Feeling bad about yourself - or that you are a failure or have let yourself or your family down: not at all 7. Trouble concentrating on things, such as reading the newspaper or watching television: not at all 8. Moving or speaking so slowly that other people could have noticed. Or the opposite - being so fidgety or restless that you have been moving around a lot more than usual: not at all 9. Thoughts that you would be better off or of hurting yourself in some way: not at all Total score: 10 Depression Screening Interpretation: Positive (denies any si or hi) Depression Screening Follow-up: Existing condition and In treatment Depression Screening Done: Yes 30703 - PHQ-9 Billing: Yes Source: Developed by Drs. Josue Taveras, Ayla Mcneill, Malcolm Richmond and colleagues, with an educational cornell from [employer]. Thrive Questionnaire Date Thrive assessed: 02/06/24 I am a: Patient What is your living situation today?: I have a steady place to live Within the past 12 months, did the food you bought not last and you didn't have the money to get more?: Never true Within the past 12 months, did you worry whether your food would run out before you got money to buy more?: Never true Do you have trouble paying for medicines?: No Do you have trouble getting transportation to medical appointments?: No Do you have trouble paying your heating and electricity bill?: No Do you have trouble taking care of your child, family member or friend?: No Do you have trouble with day-to-day activities such as bathing, preparing meals, shopping, managing finances, etc.?: No Are you currently unemployed and looking for a job?: No Are you interested in more education?: No Please select the resources that you would like help with: None Currently or been in a relationship where the following occur: No concerns reported THRIVE Score: 0 AUDIT C Alcohol Use Questionnaire (AUDIT-C) 1. How often do you have a drink containing alcohol?: Monthly or less 2. How many drinks containing alcohol do you have on a typical day when you are drinking?: 1 or 2 3. How often do you have six or more drinks on one occasion?: Never Total Score: 1 BRANDI-7 AMB Questionnaire BRANDI-7 Date BRANDI - 7 assessed: 07/26/21 Feeling nervous, anxious, or on edge: 1 = Several days Not being able to stop or control worryin = Several days Worrying too much about different things: 1 = Several days Trouble relaxin = Several days Being so restless that it is hard to sit still: 0 = Not at all Becoming easily annoyed or irritable: 1 = Several days Feeling afraid as if something awful might happen: 0 = Not at all Total BRANDI-7 score (0-4 normal; 5-9 mild; 10-14 moderate; 15-21 severe): 5 Source: Developed by Drs. Josue Taveras, Ayla Mcneill, Malcolm Richmond and colleagues, with an educational cornell from [employer]. Review of Systems Const Denies chills and Denies fever(s) Eyes Denies blurry vision ENT Denies vertigo, Denies dizziness and Denies sore throat Card Denies chest pain at rest, Denies chest pain with activity, Denies diaphoresis, Denies dyspnea and Denies dyspnea on exertion Resp Denies cough, Denies dyspnea, Denies dyspnea on exertion and Denies wheezing GI Denies abdominal pain, Denies melena, Denies hematochezia, Denies constipation, Denies diarrhea and Denies loose stools Denies hematuria Musc Denies numbness and Denies tingling Skin/Breast Denies lesions Neuro Denies vertigo, Denies dizziness, Denies numbness and Denies tingling Psych Denies anxiety, Denies depression, Denies homicidal ideation, Denies suicidal ideation and Denies other (substance abuse) Aller/Immun Denies wheezing Physical exam (Primary Care) Vital Signs: Last Vital Signs Pulse 72 02/13/24 07:27 BP 108/74 02/13/24 07:27 Pulse Ox 98 02/13/24 07:27 Oxygen Delivery Method Room Air 02/13/24 07:27 BMI result Body Mass Index 34.7 Tobacco/Smoking Status: Tobacco use Status Tobacco use date assessed 02/13/24 02/13/24 07:29 Patient Tobacco Use Status Current everyday Tobacco 02/13/24 07:29 Tobacco use type Cigarette 02/13/24 07:29 e-Cigarette/Vaping Use Never Used 02/13/24 07:29 PHQ-9: PHQ-9 Score PHQ-9: Total score 10 02/13/24 07:29 Depression Screening Interpretation: Positive (denies any si or hi) Depression Screening Follow-up: Existing condition and In treatment Thrive Assessment: Date of Thrive Assessment Date Thrive assessed 02/06/24 02/13/24 07:29 Currently or been in a relationship where the following occur: No concerns reported Const General: cooperative Nutritional Appearance: well nourished and obese Orientation/consciousness: patient oriented x3 HENMT Head: Yes normal to inspection, Yes normocephalic and Yes atraumatic Ears: TM normal on the right and TM normal on the left Eyes General: appearance normal, both eyes and all related structures Alignment and Position: alignment normal and position normal Neck Neck: Yes normal visual inspection, Yes no lymphadenopathy and Yes supple Resp Effort & Inspection: normal respiratory effort Auscultation: clear to auscultation bilaterally Cardio Rate: regular rate Rhythm: regular rhythm Heart sounds: S1 normal heart sound present, S2 normal heart sound present and no murmurs GI Palpation (GI): Soft to palpation and nontender Auscultation: normal bowel sounds Skin Rashes: no rashes Neuro General: patient oriented x3, moves all extremities, no focal motor deficits and deep tendon reflexes 2+ bilaterally Romberg Test: Negative Extrem Right lower extremity: no edema Left lower extremity: no edema Psych Affect: normal affect Attitude: cooperative Thought process: Normal thought process present Coding Level of Care Code Est Pt Prev Care 40-64y(51808) Diagnoses Left hip pain M25.552 Encounter for routine adult physical exam with abnormal findings Z. Vitamin D deficiency E55.9 Obesity E66.9 Additional Codes PHQ-9 - 24370 - PHQ-9 Billing: Yes ([id number]) Assessment & Plan Assessment & Plan (1) Left hip pain: Code(s): M25.552 - Pain in left hip Category: Medical Plan: XR ordered (2) Encounter for routine adult physical exam with abnormal findings: Code(s): Z. - Encounter for general adult medical examination with abnormal findings Category: Medical Plan: labs ordered (3) Vitamin D deficiency: Code(s): E55.9 - Vitamin D deficiency, unspecified Category: Medical (4) Obesity: Code(s): E66.9 - Obesity, unspecified Category: Medical Plan: wegovy sent Plan wegovy sent Orders: Orders Comprehensive Broussard. Panel Fast Today Z00. - Encounter for general adult medical examination with abnormal findings XR hip LT min 2V Today M25.552 - Pain in left hip Complete Blood Count Auto Diff Today Z00. - Encounter for general adult medical examination with abnormal findings TSH reflex Free T4 Today Z00. - Encounter for general adult medical examination with abnormal findings UA CC w/rflx Micro + Cult Today Z00. - Encounter for general adult medical examination with abnormal findings Lipid Panel Today Z00. - Encounter for general adult medical examination with abnormal findings Vitamin D 25-OH Total Today E55.9 - Vitamin D deficiency, unspecified Medications: New semaglutide (weight loss) (Wegovy) administer weeks 1 through 4 of therapy 0.25 mg (0.5 mL) subcut QWEEK 2 mL 0RF
== END 2024-02-13 08:20 | disposition home or self-care (01) ==
PROVIDERS: PCP Nurse Practitioner Family; Visit Provider Nurse Practitioner Family
DX: Z00.01 Encounter for general adult medical examination with abnormal findings (principal); M25.552 Pain in left hip; E66.9 Obesity, unspecified; Z68.34 Body mass index [BMI] 34.0-34.9, adult; E55.9 Vitamin D deficiency, unspecified

== ENCOUNTER → 2024-02-13 07:24 | Outpatient (BNVA) | payer BC, SELFPAY | PROVIDERS: PCP Nurse Practitioner Family; Visit Provider Nurse Practitioner Family | DX: Z00.01 Encounter for general adult medical examination with abnormal findings (principal); M25.552 Pain in left hip; E55.9 Vitamin D deficiency, unspecified; E66.9 Obesity, unspecified; Z68.34 Body mass index [BMI] 34.0-34.9, adult | CPT/HCPCS: 96127 ==

== ENCOUNTER 2024-12-23 08:50 | Outpatient (REF) | payer BC, SELFPAY ==
--- NOTE | ~2024-12-23 | MM_ITS ---
EXAMINATION: MM SCREENING DIGITAL BREAST TOMOSYNTHESIS, BILATERAL CLINICAL INFORMATION: Screening. Asymptomatic. COMPARISON: Comparison made to multiple prior, most recent December 21, 2023, and most remote October 16, 2018. TECHNIQUE: Digital breast tomosynthesis is performed in mediolateral oblique and craniocaudal views along with computer-aided detection (CAD). Synthesized 2D images are generated from the tomosynthesis. FINDINGS: BREAST COMPOSITION: There are scattered areas of fibroglandular density. BILATERAL BREASTS: History of bilateral reduction mammoplasty. No significant masses, suspicious calcifications or other abnormalities are seen in either breast. MM/MM tomosynthesis screening BI IMPRESSION: BILATERAL BREASTS: Benign, no mammographic evidence of malignancy. Normal interval follow-up is recommended in 12 months. ASSESSMENT: BI-RADS: Category 2: Benign RECOMMENDATION: Routine annual mammography screening. FOLLOW-UP: 1 year F/U This examination should not preclude the clinical evaluation of a suspicious palpable abnormality. This patient's information was entered into a reminder system with a target due date for their next mammogram. Electronically signed by: Lorenzo Reardon MD 12/23/2024 08:34 PM EDT
--- OUTSIDE RECORDS SUMMARY | 2024-12-23 09:22 | XMS_ITS | Patient Health Record ---
Author Organization [facility] Address [address] [place] [address] Care Team Providers Care Electronic Device Repairer Name Role Phone Dane Tamayo Primary Care Provider Unav ailable Flaquita Eubanks Unavailable [phone] Allergies Allergen (clinical drug ingredient) Drug/Non Drug Allergy documented on EMR Reaction Allergy Type Onset Date Status barium sulfate Barium Sulfate Unknown Drug Allergy Active varenicline Varenicline Unknown Drug Allergy Act pooja Reason For Referral No Information Medications Medication SIG (Take, Route, Frequency, Duration) Notes Start Date End Date Status Gabapentin 300 MG 1 capsule Orally Onc e a day at night; Duration: 30 day(s) 11/16/2020 Not-Taking Work Note . . . Patient off of w ork for 8 weeks after foot surgery on Nov 25 11/16/2020 Not-Taking Work Note . . . Return to work o n 01/17/21 limited walking and standing while at work 01/12/2021 Active Work Note . . . Patient out of w ork due to foot surgery and recovery until Jan 24 01/07/2021 Active buPROPion HCl ER (XL) 300 MG 1 tablet in the morning Orally Once a day; Duration: 30 day(s) Active Ibuprofen 800 MG 1 tablet with food o r milk as needed Orally Three times a day; Duration: 14 days 11/16/2020 Active Buprenorphine HCl-Naloxone HCl 8-2 MG 1 tablet under the tongue and allow to dissolve Sublingual Once a day Active Eszopiclone 3 MG 1 tablet immediately before bedtime Orally Once a day Active Sertraline HCl 25 MG 1 tablet Orally Onc e a day; Duration: 30 day(s) Active Immunizations Vaccine Route Administration Date Status Comme nts COVID-19 Moderna Vaccine Unknown 09/03/2020 Administere d First Dose:08/06/20 Social History Tobacco Use: Social History Observation Description Date Details (start date - stop date) Current Smoker NA - NA Tobacco Use/Smoking Question Answer Notes Are you a: current smoker How often do you smoke cigarettes? every day How many cigarettes a day do you smoke? 6-10 How soon after you wake up d o you smoke your first cigarette? after 60 minutes Additional Findings: Tobacco Non-User Ex-cigaret te smoker Alcohol Screen Question Answer Notes Did you have a drink containing alcohol in the p ast year? No Points 0 Interpretation Negative Tobacco use other than smoking: Question Answer Notes Are you an other tobacco user? No Section Notes: Pt relates occasional tobacc o use-relates she has been hypnotized to try quitting Pt relates occasional tobacc o use-relates she has been hypnotized to try quitting Pt relates occasional tobacc o use-relates she has been hypnotized to try quitting Pt relates occasional tobacc o use-relates she has been hypnotized to try quitting Pt relates occasional tobacc o use-relates she has been hypnotized to try quitting Pt relates occasional tobacc o use-relates she has been hypnotized to try quitting Problems Problem Type SNOMED Code ICD Code Onset Dates Problem Status W/U Status Risk Notes Problem Acquired hallux valgus ([id number]) Hallux valgus (acquired), right foot (M20.11) Active confirmed Plan Of Treatment Pending Test Test Name Order Date X ray : Foot, right 3V 09/29/2020 X ray : Foot, right 3V 11/30/2020 X ray : Foot, right 3V 12/07/2020 X ray : Foot, right 3V 12/17/2020 X ray : Foot, right 3V 01/07/2021 X ray : Foot, right 3V 02/04/2021 Insurance Providers Payer Name Payer Address Payer Phone Subscriber Number Group Number Insured Name Patient Relationship to Insured Coverage Start Date Coverage End Date [facility] [address] [place] [address] [phone] [id number] Debi Campbell Self - patient is the insured Medical (General) History Medical History History ICD Code Anxiety Depression Spinal stenosis Diverticulosis seborrheic keratosis Opiate abuse Postlaminectomy Syndrome Back,Hip,and Knee pain Gall bladder problems Headaches/Migraines Chicken pox Joint implants/screws Surgical History Surgery Date(Month/Year) back surgery 2019 hemilamectomy cyst removal hysterectomy 2008 spinal fusion mammoplasty 2001 cholecystectomy 2006 torn rotater cuff 2010 Right foot surgery -Dario Bunionectomy 11/25/2020
== END 2024-12-23 08:51 | disposition home or self-care (01) ==
LOC: HO.MAMMO 08:50
PROVIDERS: PCP Nurse Practitioner Family; Visit Provider Nurse Practitioner Family
DX: Z12.31 Encounter for screening mammogram for malignant neoplasm of breast (principal)
CPT/HCPCS: 77063; 77067

== ENCOUNTER → 2024-12-23 09:00 | Outpatient (BNV) | payer BC, SELFPAY | PROVIDERS: PCP Nurse Practitioner Family; Visit Provider Radiology Body Imaging | DX: Z12.31 Encounter for screening mammogram for malignant neoplasm of breast (principal) | CPT/HCPCS: 77063; 77067 ==